=== PATIENT | female | born 1980 | race African-American/Black ===

== ENCOUNTER → 2017-12-07 | Outpatient (CLI) | payer BC | LOC: MC.RAD 11-23 13:00 | DX: R92.2 Inconclusive mammogram (principal); N63.10 Unspecified lump in the right breast, unspecified quadrant; R92.1 Mammographic calcification found on diagnostic imaging of breast ==

== ENCOUNTER → 2020-10-16 | Outpatient (CLI) | payer BC | LOC: MC.RAD 08:00 | DX: Z12.31 Encounter for screening mammogram for malignant neoplasm of breast (principal) ==